=== PATIENT | male | born 1980 | race American Indian/Alaskan Native ===

== ENCOUNTER 2020-11-04 13:26 | Emergency (ER) | payer MEDICAID ==
[2020-11-04 15:23] VITALS: BP 175/100
--- NOTE | 2020-11-04 15:49 | Emergency Department Report ---
ED General Adult HPI - General Chief complaint: Urogenital-Male Stated complaint: POSSIBLE STD, UPPER RESIRATORY INFECTION Time Seen by Provider: 11/04/20 15:38 Source: patient Mode of arrival: Ambulatory Limitations: No Limitations - History of Present Illness Initial comments: This is a 40-year-old obese male. He is complaining of productive cough x3 weeks. He also states that he has been out of his blood pressure medication losartan x3 weeks and last night his girlfriend told him that she has a STD. Patient currently denies chest pain no shortness of breath he denies fever chills nausea vomiting he also denies any urinary symptoms or penile discharge. His past medical history is of congestive heart failure and hypertension. Patient in no acute distress Associated Symptoms: cough. denies: confusion, chest pain, nausea/vomiting, shortness of breath, syncope, weakness Treatments Prior to Arrival: none - Related Data Previous Rx's Medication Instructions Recorded Last Taken Type RX: Azithromycin [Zithromax Z-CHAZ] 0 mg PO DAILY #1 pack 11/04/20 Unknown Rx RX: Losartan [Cozaar] 50 mg PO QDAY #30 tablet 11/04/20 Unknown Rx Allergies Allergy/AdvReac Type Severity Reaction Status Date / Time No Known Allergies Allergy Unverified 11/04/20 15:20 ED Review of Systems ROS: Stated complaint: POSSIBLE STD, UPPER RESIRATORY INFECTION Other details as noted in HPI Comment: All other systems reviewed and negative Constitutional: no symptoms reported Respiratory: no symptoms reported, cough Cardiovascular: denies: chest pain, palpitations, dyspnea on exertion Gastrointestinal: denies: abdominal pain, nausea, vomiting, constipation Neurological: denies: headache, numbness, paresthesias Psychiatric: denies: anxiety ED Past Medical Hx - Past Medical History Previous Medical History?: Yes Hx Hypertension: Yes Hx Congestive Heart Failure: Yes Additional medical history: heary problems - Surgical History Past Surgical History?: Yes Additional Surgical History: heart cath - Social History Smoking Status: Current Every Day Smoker Substance Use Type: Alcohol - Medications Home Medications: Home Medications Medication Instructions Recorded Confirmed Last Taken Type RX: Azithromycin [Zithromax Z-CHAZ] 0 mg PO DAILY #1 pack 11/04/20 Unknown Rx RX: Losartan [Cozaar] 50 mg PO QDAY #30 tablet 11/04/20 Unknown Rx ED Physical Exam - General Limitations: No Limitations General appearance: alert, in no apparent distress, obese - Head Head exam: Present: atraumatic - Eye Eye exam: Present: normal appearance - ENT ENT exam: Present: normal exam, TM's normal bilaterally - Neck Neck exam: Present: normal inspection, full ROM - Respiratory Respiratory exam: Present: wheezes (Few scattered wheezes). Absent: respiratory distress, rales - Cardiovascular Cardiovascular Exam: Present: regular rate, normal rhythm, normal heart sounds - GI/Abdominal GI/Abdominal exam: Present: soft - Extremities Exam Extremities exam: Present: normal inspection - Back Exam Back exam: Present: normal inspection - Neurological Exam Neurological exam: Present: alert, oriented X3 - Psychiatric Psychiatric exam: Present: normal affect - Skin Skin exam: Present: warm, dry, intact ED Course Vital Signs 11/04/20 15:21 Temperature 98.3 F Pulse Rate 63 Respiratory 22 Rate Blood Pressure 175/100 O2 Sat by Pulse 97 Oximetry ED Medical Decision Making - Lab Data Result diagrams: 11/04/20 15:55 11/04/20 15:55 - Radiology Data Radiology results: report reviewed INDICATION / CLINICAL INFORMATION: productive cough x 3 months. COMPARISON: None available. FINDINGS: SUPPORT DEVICES: None. HEART / MEDIASTINUM: No significant abnormality. LUNGS / PLEURA: No significant pulmonary or pleural abnormality. No pneumothorax. ADDITIONAL FINDINGS: No significant additional findings. IMPRESSION: 1. No acute findings. - Medical Decision Making 40-year-old male presents to the emergency room with complaint of cough x3 weeks ,possible STD exposure and he is out of his blood pressure medication losartan x3 weeks. Patient reports a past medical history of hypertension and congest otto heart failure. During evaluation and while in the emergency room patient denied any chest pain or shortness of breath on examination there were few scattered wheezes auscultated but there were no rails he had no pedal swelling. Work-up which consist of a CBC chemistry and a BNP was all within normal limits. Chest x-ray showed no acute findings. Patient given 1 month supply of losartan 50 mg daily and a azithromycin 1 pack because of the 3 weeks of productive cough. He is referred to an outside facility for STD screening and also for Covid testing. Patient is in no acute distress and he agrees with the plan. - Differential Diagnosis URI, cough, viral illness Critical care attestation.: If time is entered above; I have spent that time in minutes in the direct care of this critically ill patient, excluding procedure time. ED Disposition Clinical Impression: Cough Disposition: DC-01 TO HOME OR SELFCARE Is pt being admited?: No Does the pt Need Aspirin: No Condition: Stable Additional Instructions: Take Z-Chaz as instructed. Drink plenty of fluids rest. Stay away from cheese and dairy products as they are mucus forming and that will help decrease your m ucus formation. Please follow-up with the local health department or Dr. Garcia for STD screening.. The chest your lab works shows no acute findings and your chest x-ray showed no signs of pneumonia. You have been given a 30-day supply of losartan please take 1 tablet daily as usual. You must follow-up with your primary care doctor for future refills of your blood pressure medicine or follow-up with the physicians I have referred you to Prescriptions: RX: Losartan [Cozaar] 50 mg PO QDAY #30 tablet RX: Azithromycin [Zithromax Z-CHAZ] 0 mg PO DAILY #1 pack Referrals: PRIMARY MD ERIN [Primary Care Provider] - 3-5 Days ABDI GARCIA MD [Staff Physician] - 3-5 Days [facility] [Outside] - 3-5 Days [facility] [Outside] - 3-5 Days Time of Disposition: 17:15
--- NOTE | 2020-11-04 16:17 | XRay Report ---
CHEST 2 VIEWS INDICATION / CLINICAL INFORMATION: productive cough x 3 months. COMPARISON: None available. FINDINGS: SUPPORT DEVICES: None. HEART / MEDIASTINUM: No significant abnormality. LUNGS / PLEURA: No significant pulmonary or pleural abnormality. No pneumothorax. ADDITIONAL FINDINGS: No significant additional findings. IMPRESSION: 1. No acute findings. Signer Name: Lloyd Black MD Signed: 11/04/2020 4:13 PM Workstation Name: [id number]
[2020-11-04 16:31] LABS: Hematocrit 40.2 % (35.5-45.6); Hemoglobin 13.3 gm/dl (11.8-15.2); Mean Corpuscular HGB Conc 33 % (32-34); Mean Corpuscular Volume 97 fl (84-94); Platelet Count 281 K/mm3 (140-440); Red Blood Count 4.17 M/mm3 (3.65-5.03)
[2020-11-04 16:49] LABS: Alanine Aminotransferase 17 units/L (7-56); BUN/Creatinine Ratio 11; Blood Urea Nitrogen 11 mg/dL (9-20); Calcium 8.7 mg/dL (8.4-10.2); Hemolysis Index 3
== END 2020-11-04 20:00 | disposition home or self-care (01) ==
LOC: ED 13:26
DX: R05 Cough (principal); I11.0 Hypertensive heart disease with heart failure; I50.9 Heart failure, unspecified; F17.200 Nicotine dependence, unspecified, uncomplicated; Z79.899 Other long term (current) drug therapy; Z98.890 Other specified postprocedural states
CPT/HCPCS: 36415; 71046; 80053; 83880; 85027